=== PATIENT | female | born 1975 | race Caucasian/White ===

== ENCOUNTER → 2020-12-24 | Outpatient (CLI) | payer OTHER ==
[2020-12-24 09:39] LABS: ABSOLUTE NEUTROPHILS 2.9 thou/uL (1.4-8.2); BASOPHILS 1.4 % (0.0-2.0); EOSINOPHILS 2.6 % (0.0-3.0); HEMATOCRIT 40.3 % (37.0-47.0); HEMOGLOBIN 13.6 gm/dL (12.0-15.0); LYMPHOCYTES 32.1 % (24.0-44.0); MCH 28.8 pg (26.0-34.0); MCHC 33.7 g/dL (28.0-37.0); MCV 85.6 fL (80.0-100.0); PLATELET COUNT 339 thou/uL (150-400); POLYS 55.9 % (36.0-66.0); RBC 4.71 mil/uL (4.20-5.00); RDW 13.2 % (10.5-14.5); WBC 5.2 thou/uL (4.0-11.0)
[2020-12-24 09:58] LABS: ALBUMIN 3.5 g/dL (3.4-5.0); ANION GAP 7 mmol/L (7-16); BUN 17 mg/dL (7-18); CALCIUM 8.7 mg/dL (8.5-10.1); CHLORIDE 101 mmol/L (98-107); CHOLESTEROL 186 mg/dL (<200); CO2 26 mmol/L (21-32); CREATININE 0.9 mg/dL (0.6-1.0); GLUCOSE 141 mg/dL (74-106); HDL CHOLESTEROL 38 mg/dL (>40); LDL CHOLESTEROL 94 mg/dL (<100); POTASSIUM 4.6 mmol/L (3.5-5.1); SGOT 37 U/L (15-37); SGPT 50 U/L (30-65); SODIUM 134 mmol/L (136-145); TC:HDL 4.9 Ratio (Not establshd); TOTAL BILIRUBIN 0.3 mg/dL (0.2-1.0); TRIGLYCERIDE 271 mg/dL (<150); VLDL 54 mg/dL (<40)
[2020-12-24 23:06] LABS: GLYCOHEMOGLOBIN (HGB A1C) 6.6 % (4.8-5.6)
== END ==
LOC: LAB 09:09
PROVIDERS: ATTEND Nurse Practitioner
DX: E11.00 Type 2 diabetes mellitus with hyperosmolarity without nonketotic hyperglycemic-hyperosmolar coma (NKHHC) (principal)